=== PATIENT | female | born 1965 | race Caucasian/White ===

== ENCOUNTER 2022-08-04 17:49 | Emergency (ER) | payer OTHER, SELFPAY ==
--- NOTE | ~2022-08-04 | CT_ITS ---
EXAMINATION: CTA brain carotid DATE: 08/04/2022 18:51 INDICATION: cva TECHNIQUE: Computed tomographic angiography (CTA) of the head and neck was performed with 100 mL Omni paque-350 intravenous contrast. Automated exposure control and iterative reconstruction technique wer e employed. The dose-length product was 897.36 mGy-cm. Maximum intensity projection and volume render ed 3D-reconstructions were created by the technologist on a separate workstation. COMPARISON: CT brain, same date. FINDINGS: acute large vessel infarct, intracranial hemorrhage, mass, or hydrocephalus. CTA HEAD: No large vessel occlusion, aneurysm, high flow vascular malformation, nidus or extravasation. Hypopla stic distal right vertebral artery. Patent anterior and bilateral posterior communicating arteries. H ypoplastic bilateral P1 segments. CTA NECK: Aortic arch and proximal great vessels: No significant atherosclerotic calcifications at the visualiz ed aortic arch and proximal great vessels. Right common carotid, carotid bifurcation, and internal carotid artery: No significant plaque.There i s 0% stenosis of the proximal right internal carotid artery relative to normal distal artery lumen di ameter (NASCET criteria). Left common carotid, carotid bifurcation, and internal carotid artery: No significant plaque.There is 0% stenosis of the proximal left internal carotid artery relative to normal distal artery lumen diam eter (NASCET criteria). 1.2 cm length of distal internal carotid artery, with outpouchings and the molina ggestion of an intimal flap at the level of C1, no intimal thrombus, no significant calcified plaque, may represent old trauma, ulcerative plaque, or saccular aneurysm. Vertebral arteries: No significant plaque or stenosis. The left vertebral artery is dominant. Other findings: Pulmonary arterial hypertension. Multiple calcified mediastinal lymph nodes. Biapical pleural scarring. Pulmonary granuloma. Emphysematous change. IMPRESSION: No large vessel occlusion. No severe carotid or vertebral stenosis. Chronic and incidental findings a re detailed above. Reviewed, dictated and finalized at location K. AULIC PILE HAMMER OPERATOR IMPRESSION: No large vessel occlusion. No severe carotid or vertebral stenosis. Chronic and incidental findings are detailed above.
--- NOTE | ~2022-08-04 | XR_ITS ---
EXAMINATION: XR chest 1V portable Exam Date/Time: 08/04/2022 18:15 MARKETING TRAFFIC COORDINATOR HISTORY: weakness, code CVA Comparison: None available. RESULT: Lines, tubes, and devices: Intact sternotomy wires. Cardiac valve replacement. Lungs and pleura: Left basilar atelectasis. Multiple bilateral calcified granulomas. Cardiomediastinal silhouette: Aortic arch calcification. Moderate hiatal hernia versus diaphragmatic hernia. Other: No acute osseous or upper abdominal finding. IMPRESSION: No acute cardiopulmonary process. Reviewed, dictated and finalized at location K. ETING TRAFFIC COORDINATOR
--- NOTE | ~2022-08-04 | CT_ITS ---
EXAMINATION: CT brain wo con DATE: 08/04/2022 18:03 INDICATION: CODE CVA . TECHNIQUE: Computed tomography (CT) of the head was performed without intravenous contrast. The mA wa s adjusted according to patient size. Iterative reconstruction technique was employed. The dose-lengt h product was 605.33 mGy-cm. COMPARISON: None. FINDINGS: No acute intracranial hemorrhage or extra-axial fluid collection. No hydrocephalus, mass, or herniation. No acute ischemic infarct. Unremarkable dural venous sinus attenuation. No acute osseous abnormality. The aerated spaces are clear. Mild atrophy and chronic white matter change. Prominent bifrontal extra-axial spaces, may reflect a c omponent of atrophy, chronic subdural, or cystic hygroma. Atherosclerotic intracranial calcification. IMPRESSION: No acute intracranial process. Results reported telephonically to Dr. Solares by Dr. Farfan at 6:12 PM on 08/04/2022. Reviewed, dictated and finalized at location K. T ROOM HAND IMPRESSION: No acute intracranial process. Results reported telephonically to Dr. Solares by Dr. Farfan at 6:12 PM on 08/04.
--- NOTE | 2022-08-04 17:58 | ECG_ITS ---
Measurements Intervals [place] Rate: 88 P: 269 HI: 134 QRS: -40 QRSD: 106 T: 64 QT: 384 QTc: 467 Interpretive Statements JUNCTIONAL RHYTHM WITH OCCASIONAL VENTRICULAR PREMATURE COMPLEXES LEFT AXIS DEVIATION [QRS AXIS < -30] NONSPECIFIC ST & T-WAVE ABNORMALITY ABNORMAL ECG NO PREVIOUS ECG AVAILABLE FOR COMPARISON Electronically Signed On 08-05-2022 12:37:34 RE DYE HAND by Luc Osullivan M.D.
[2022-08-04 18:04] VITALS: BP 118/62; PULSE 91; RESP 20; TEMP 36.7; O2SAT 96
[2022-08-04 18:09] VITALS: BP 118/62; PULSE 93; RESP 18; TEMP 36.7; O2SAT 96
[2022-08-04 18:10] VITALS: PULSE 92
[2022-08-04 18:12] LABS: Glucose Point of Care 120 mg/dl (65-105)
--- NOTE | 2022-08-04 18:18 | ED.NEUROSD ---
HPI - Neuro Symptoms/Deficit General Chief Complaint: Suspected CVA Stated Complaint: left sided weakness and vision changes Time Seen by Provider: 08/04/22 18:08 Source: patient and family Limitations: clinical condition History of Present Illness HPI Narrative: 56 years old white female presented to the ED with funny feeling of the left side of her body and double vision at the right eye during walking 30 minutes prior to arrival to the emergency. History of hypertension, CHF, hypothyroidism, mitral metallic valve Coumadin and aspirin. Patient denies any fever, chills, nausea, vomiting, chest pain, headache. Related Data Allergies Allergy/AdvReac Type Severity Reaction Status Date / Time Penicillins Allergy Hives Verified 08/04/22 18:22 streptomycin Allergy Hives Verified 08/04/22 18:22 vancomycin Allergy Hives Verified 08/04/22 18:22 Review of Systems Review of Systems: All systems reviewed & are unremarkable except as noted in HPI and below Exam Narrative: General appearance: Well-developed, well-nourished Skin: Normal color Head: Normocephalic, nontraumatic Eyes: Clear conjunctiva ENT: Oropharynx normal, ears normal, nose normal Neck: Supple, nontender Chest and respiratory: Airway patent, no respiratory distress, no accessory muscle use Heart: Regular rate/rhythm Abdomen: Soft, nontender, no organomegaly, quiet bowel sounds Vascular: Normal peripheral pulses, normal capillary refill. Musculoskeletal: Normal range of motion, nontender back Neurologic: Alert and oriented ?3, patient keeps falling to the left during a standing, unable to walk because of the severe disequilibrium. Course Course Emergency Course: No changes Consultations Consultation #1: Dr. Hernandez, neurologist at [facility] who accepted patient transfer. Date: 08/04/22 Time: 18:52 Consultation #2: DR HALL, ED physician at [facility] who accepted patient transfer Date: 08/04/22 Time: 18:52 Vital Signs Vital signs: Vital Signs Temperature 36.7 C 08/04/22 18:04 Pulse Rate 91 08/04/22 18:04 Respiratory Rate 20 08/04/22 18:04 Blood Pressure 118/62 08/04/22 18:04 Pulse Oximetry 96 08/04/22 18:04 Oxygen Delivery Room Air 08/04/22 18:04 Temperature 36.7 C 08/04/22 18:09 Pulse Rate 92 08/04/22 18:10 Respiratory Rate 18 08/04/22 18:09 Blood Pressure 118/62 08/04/22 18:09 Pulse Oximetry 96 08/04/22 18:09 Oxygen Delivery Room Air 08/04/22 18:04 MDM - Neuro Symptoms/Deficit MDM Narrative Medical decision making narrative: Patient presents with stroke symptoms 30 minutes prior to arrival to the emergency room. Patient on Coumadin and aspirin, stroke scale is 3, INR is 2.3, patient is not a tPA candidate at this time because of her INR is more than 1.7. CT head showed no acute abnormalities. Labs, EKG ordered. CTA head and neck ordered. Transfer to [facility] for further evaluation. Lab Data 08/04/22 18:13 08/04/22 18:13 Labs: Lab Results 08/04/22 08/04/22 08/04/22 Range/Units 18:09 18:13 18:13 WBC Pending RBC Pending Hgb Pending Hct Pending MCV Pending MCH Pending MCHC Pending RDW Pending Plt Count Pending MPV Pending Immature Gran % (Auto) Pending Neut % (Auto) Pending Lymph % (Auto) Pending Tompkins % (Auto) Pending Eos % (Auto) Pending Baso % (Auto) Pending Lymph # (Auto) Pending Tompkins # (Auto) Pending Eos # (Auto) Pending Baso # (Auto) Pending Abs Immat Gran (auto) Pending Absolute Neuts (auto) Pending Absolute Nucleated RBC Pending
[2022-08-04 18:19] LABS: Basophils Absolute Auto 0.1 K/mm3 (0.0-0.1); Basophils Percent Auto 1.3 % (0.2-1.2); Eosinophils Absolute Auto 0.2 K/mm3 (0-0.3); Hematocrit 40.7 % (37.0-47.0); Hemoglobin 13.5 g/dL (12.0-15.0); Immature Granulocyte Absolute 0.04 K/mm3 (0.00-0.031); Immature Granulocyte Percent A 0.6 % (0-0.5); Lymphocytes Absolute Auto 1.34 K/mm3 (0.9-3.2); Lymphocytes Percent Auto 19.3 % (18.3-44.2); Mean Corpuscular HGB Conc 33.2 g/dl (32-36); Mean Corpuscular Hemoglobin 28.6 pg (26-34); Mean Corpuscular Volume 86.2 fl (80-100); Monocytes Percent Auto 13.8 % (2.6-8.5); Neutrophils Absolute Auto 4.3 K/mm3 (1.3-6.7); Platelet Count Result 323 k/mm3 (150-375); Red Blood Count 4.72 M/mm3 (4.2-5.4); White Blood Count 6.9 K/mm3 (4.5-10.0)
[2022-08-04 18:29] LABS: INR 2.3; Prothrombin Time 24.4 Seconds (11.1-14.7)
[2022-08-04 18:33] LABS: Alanine Aminotransferase 25 U/L (6-35); Albumin Level 4.7 g/dL (3.5-5.1); Alkaline Phosphatase 89 U/L (38-126); Anion Gap 9 mmol/L (8-16); Aspartate Amino Transferase 38 U/L (14-36); Bilirubin,Total 0.6 mg/dL (0.2-1.3); Blood Urea Nitrogen 25 mg/dL (7-17); Calcium 8.4 mg/dL (8.4-10.2); Carbon Dioxide 28 mmol/L (22-30); Chloride 99 mmol/L (98-107); Estimated CRCL calculation 78 ml/min; Estimated Glomerular Filt Rate > 60; Glucose 108 mg/dL (65-110); Potassium 3.6 mmol/L (3.4-5.0); Sodium 136 mmol/L (137-145)
[2022-08-04 18:37] VITALS: BP 118/62; PULSE 78; RESP 18; O2SAT 96
[2022-08-04 18:44] LABS: Troponin I < 0.012 ng/mL (0.000-0.034)
[2022-08-04 19:06] VITALS: BP 107/73; PULSE 76; RESP 18; O2SAT 96
== END 2022-08-04 19:10 | disposition short-term general hospital (02) ==
PROVIDERS: Emergency Medicine; Emergency Provider Emergency Medicine; PCP Internal Medicine
DX: I63.9 Cerebral infarction, unspecified (principal); R29.703 NIHSS score 3; I11.0 Hypertensive heart disease with heart failure; I50.9 Heart failure, unspecified; E03.9 Hypothyroidism, unspecified; Z79.82 Long term (current) use of aspirin; Z79.01 Long term (current) use of anticoagulants; I49.3 Ventricular premature depolarization; R94.31 Abnormal electrocardiogram [ECG] [EKG]
CPT/HCPCS: 36415; 70450; 70496; 70498; 71045; 80053; 82948; 84484; 85025; 85610; 85730; 93005; 99285; Q9967

== ENCOUNTER 2024-04-05 17:21 | Emergency (ER) | payer BC, SELFPAY ==
[2024-04-05 17:23] VITALS: BP 115/67; PULSE 80; RESP 20; TEMP 36.4; O2SAT 99
--- NOTE | 2024-04-05 17:54 | ED.GENADULT ---
HPI - General Adult General Chief complaint: Recheck/Abnormal Lab/Rx Stated complaint: post oral surgry - x1 week bleeding won't stop Time Seen by Provider: 04/05/24 17:33 History of Present Illness HPI narrative: 58-year-old female presents emergency department for evaluation for bleeding from dental extraction. Patient had a bone graft and 4 teeth extracted on 03/30. Patient did have follow-up with her oral surgeon today and he stated the wounds look fine. At patient was coming back she had acute onset of bleeding. Patient was wearing her bridge today. Related Data Allergies Allergy/AdvReac Type Severity Reaction Status Date / Time Penicillins Allergy Hives Verified 08/04/22 18:22 streptomycin Allergy Hives Verified 08/04/22 18:22 vancomycin Allergy Hives Verified 08/04/22 18:22 Review of Systems Review of Systems: All systems reviewed & are unremarkable except as noted in HPI and below Exam Narrative: APPEARANCE: Well appearing, no pain, no distress, well-nourished. HEAD: normocephalic, atraumatic. EYES: PERRLA/EOMI, conjunctivae clear. NOSE: Normal no drainage Mouth: Bleeding from front left dental extraction site. THROAT: Pharynx clear, no exudate. NECK: Supple. No adenopathy, no masses. RESPIRATORY: Airway patent, respirations nonlabored. Clear to auscultation bilaterally, no rales, rhonchi, wheezing. CARDIOVASCULAR: Regular rate and rhythm without murmurs rubs or gallops. ABDOMINAL: Soft, nontender, nondistended, normal bowel sounds MUSCULOSKELETAL: Moves all extremities. Strength/ROM intact, No edema, No calf tenderness. NEURO: Alert. Cranial nerves II through XII intact. Grossly intact SKIN: Warm, dry. Normal Color Course Vital Signs Vital signs: Vital Signs Temperature 97.6 F 04/05/24 17:23 Pulse Rate 80 04/05/24 17:23 Respiratory Rate 20 04/05/24 17:23 Blood Pressure 115/67 04/05/24 17:23 Pulse Oximetry 99 04/05/24 17:23 Oxygen Delivery Room Air 04/05/24 17:23 Temperature 97.6 F 04/05/24 17:23 Pulse Rate 86 04/05/24 18:06 Respiratory Rate 15 04/05/24 18:06 Blood Pressure 118/75 04/05/24 18:06 Pulse Oximetry 98 10/21/24 18:06 Oxygen Delivery Room Air 04/05/24 17:23 Medical Decision Making MDM Narrative Medical decision making narrative: Hemostasis was achieved by patient biting wet gauze. Patient was then treated with TXA go was in continued to bite down on this. On re-evaluation patient has no oozing and no bleeding. Patient family were updated on the results of the workup and they are comfortable the plan for discharge and close follow-up. Differential Diagnosis Differential Diagnosis: Supratherapeutic INR, pop suture, intractable bleed Vital Signs Vital Signs: Vital Signs Temperature 97.6 F 04/05/24 17:23 Pulse Rate 80 04/05/24 17:23 Respiratory Rate 20 04/05/24 17:23 Blood Pressure 115/67 04/05/24 17:23 Pulse Oximetry 99 04/05/24 17:23 Oxygen Delivery Room Air 04/05/24 17:23 Temperature 97.6 F 04/05/24 17:23 Pulse Rate 86 04/05/24 18:06 Respiratory Rate 15 04/05/24 18:06 Blood Pressure 118/75 04/05/24 18:06 Pulse Oximetry 98 04/05/24 18:06 Oxygen Delivery Room Air 04/05/24 17:23 Lab Data Lab results reviewed: Yes I reviewed the patient's lab results. 04/05/24 17:47 04/05/24 17:47 Labs: Lab Results 04/05/24 Range/Units 17:47 WBC 7.9 (4.5-10.0) K/mm3 RBC 4.67 (4.2-5.4) M/mm3 Hgb 12.1 (12.0-15.0) g/dL Hct 37.0 (37.0-47.0) % MCV 79.2 L (80-100) fl MCH 25.9 L (26-34) pg MCHC 32.7 (32-36) g/dl RDW 18.5 H (11.5-14.5) % Plt Count 337 (150-375) k/mm3 MPV 10.2 (7.4-10.4) fl Immature Gran % (Auto) 0.4 (0-0.5) % Neut % (Auto) 65.2 (45.5-73.1) % Lymph % (Auto) 18.7 (18.3-44.2) % Sargent % (Auto) 10.8 H (2.6-8.5) % Eos % (Auto) 3.4 (0-4.4) % Baso % (Auto) 1.5 H (0.2-1.2) % Lymph # (Auto) 1.47 (0.9-3.2) K/
[2024-04-05 17:58] LABS: Basophils Absolute Auto 0.1 K/mm3 (0.0-0.1); Basophils Percent Auto 1.5 % (0.2-1.2); Eosinophils Absolute Auto 0.3 K/mm3 (0-0.3); Eosinophils Percent Auto 3.4 % (0-4.4); Hemoglobin 12.1 g/dL (12.0-15.0); Immature Granulocyte Absolute 0.03 K/mm3 (0.00-0.031); Immature Granulocyte Percent A 0.4 % (0-0.5); Lymphocytes Absolute Auto 1.47 K/mm3 (0.9-3.2); Lymphocytes Percent Auto 18.7 % (18.3-44.2); Mean Corpuscular HGB Conc 32.7 g/dl (32-36); Mean Corpuscular Hemoglobin 25.9 pg (26-34); Mean Corpuscular Volume 79.2 fl (80-100); Mean Platelet Volume 10.2 fl (7.4-10.4); Monocytes Absolute Auto 0.9 K/mm3 (0.1-0.6); Monocytes Percent Auto 10.8 % (2.6-8.5); Neutrophils Absolute Auto 5.1 K/mm3 (1.3-6.7); Neutrophils Percent Auto 65.2 % (45.5-73.1); Platelet Count Result 337 k/mm3 (150-375); Red Blood Count 4.67 M/mm3 (4.2-5.4); Red Cell Distribution Width 18.5 % (11.5-14.5); White Blood Count 7.9 K/mm3 (4.5-10.0)
[2024-04-05 18:06] VITALS: BP 118/75; PULSE 86; RESP 15; O2SAT 98
[2024-04-05 18:09] LABS: INR 2.5; Prothrombin Time 27.6 Seconds (11.1-14.7)
[2024-04-05 18:10] LABS: Partial Thromboplastin Time 51.5 Seconds (22.3-36.8)
[2024-04-05 18:13] LABS: Alanine Aminotransferase 21 U/L (6-35); Albumin Level 4.7 g/dL (3.5-5.1); Alkaline Phosphatase 96 U/L (38-126); Anion Gap 10 mmol/L (4-12); Aspartate Amino Transferase 29 U/L (14-36); Bilirubin,Total 0.5 mg/dL (0.2-1.3); Blood Urea Nitrogen 20 mg/dL (7-17); Calcium 8.8 mg/dL (8.4-10.2); Carbon Dioxide 23 mmol/L (22-30); Chloride 102 mmol/L (98-107); Estimated CRCL calculation 70 ml/min; Estimated Glomerular Filt Rate > 60; Glucose 98 mg/dL (65-110); Potassium 3.9 mmol/L (3.4-5.0); Sodium 135 mmol/L (137-145)
== END 2024-04-05 19:11 | disposition home or self-care (01) ==
PROVIDERS: Emergency Provider Emergency Medicine
DX: K91.840 Postprocedural hemorrhage of a digestive system organ or structure following a digestive system procedure (principal); Y84.8 Other medical procedures as the cause of abnormal reaction of the patient, or of later complication, without mention of misadventure at the time of the procedure
CPT/HCPCS: 36415; 80053; 85025; 85610; 85730; 99283